=== PATIENT | male | born 1955 | race Native Hawaiian/Other Pacific Islander ===

== ENCOUNTER 2017-03-05 07:54 | Day surgery (SDC) | payer OTHER ==
[~2017-03-05] VITALS: Ht 172.7 cm; Wt 103.0 kg
[~2017-03-05 07:54] MED LIST: GUAI600 PO; LACT PO; OXYC1SOL5 PO; PROT40TA PO; WARF6 PO
[2017-03-05 08:25] VITALS: BP 153/79; PULSE 71; RESP 16; TEMP 98.2; O2SAT 96
[2017-03-05] MEDS ORDERED: AMLO10TA2 PO (08:29)
[2017-03-05] MEDS ORDERED: ROSU10 PO (08:29)
[2017-03-05] MEDS ORDERED: HYDR-3533 PO (08:29)
[2017-03-05] MEDS ORDERED: MOBI15TA PO (08:29)
[2017-03-05] MEDS ORDERED: ASPI81CH CHEW (08:29)
[2017-03-05] MEDS ORDERED: APIX5TAB PO (08:29)
[2017-03-05 08:44] LABS: AUTOMATED NEUTROPHIL # 1.5 TH/MM3 (1.8-7.7); BASOPHIL % 0.3 % (0.0-2.0); EOSINOPHIL # 0.3 TH/MM3 (0-0.4); EOSINOPHIL % 5.4 % (0.0-4.0); HEMATOCRIT 44.5 % (39.0-51.0); HEMO FLAGS DIFF FINAL; LYMPH % 49.5 % (9.0-44.0); LYMPHOCYTE # 2.3 TH/MM3 (1.0-4.8); MEAN CELL VOLUME 82.4 FL (80.0-100.0); MONO % 13.5 % (0.0-8.0); NEUT % 31.3 % (16.0-70.0); PLATELET COUNT 227 TH/MM3 (150-450); RED CELL DISTRIBUTION WIDTH 14.8 % (11.6-17.2); WHITE BLOOD COUNT 4.7 TH/MM3 (4.0-11.0)
[2017-03-05 09:00] LABS: BICARBONATE 25.9 MEQ/L (21.0-32.0); POTASSIUM 3.9 MEQ/L (3.5-5.1); PROTHROMBIN TIME - PATIENT 10.7 SEC (9.8-11.6)
[2017-03-05] MEDS ORDERED: HEPARIN SODIUM - IV 10,000 UNITS/10 ML VIAL ONE (09:55)
[2017-03-05] MEDS ORDERED: MIDAZOLAM HCL 5 MG/ML VIAL (1 ML) ONE (09:56)
[2017-03-05] MEDS ORDERED: diphenhydrAMINE HCL 50 MG/ML VIAL ONE (10:22)
[2017-03-05] MEDS ORDERED: LIDOCAINE HCL 1% 20 ML VIAL ONE ×2 (10:29→11:26)
--- NOTE | 2017-03-05 18:24 | EKG ---
Date Performed: 03/05/2017 Time Performed: 08:59:12 PTAGE: 61 years EKG: Sinus rhythm . Normal ECG NO SIGNIFICANT CHANGE FROM PRIOR ELECTROCARDIOGRAM. PREVIOUS TRACING : 04/19/2015 19.03 DOCTOR: Andrews Fraire Interpretating Date/Time 03/05/2017 18:22:25
--- NOTE | 2017-03-05 22:53 | MP ---
cc: GLENDY WHITE MD DATE OF SURGERY 03/05/17 INDICATION Patient having severe claudication. PREOPERATIVE DIAGNOSIS: Peripheral vascular disease OPERATION 1. Angiogram with runoff. 2. Trial of angioplasty of the right iliac artery. After obtaining informed consent, the patient was brought to the cath laboratory. The left groin area was sterilized after sterile drapes. 5 [place] sheath used to access left femoral artery. Pigtail used to perform abdominal aorta with distal runoff. RESULTS On the left side, left common iliac, femoral, profunda femoral, popliteal and anterior posterior and posterior tibial artery and peroneal arteries with no significant disease. On the right side, the right common iliac completely occluded very proximally. Could not really see much except by delayed imaging of reconstitution. Initially 6 [place] sheath long exchanged on the left side and tried several times with a wire to pass through and was unsuccessful angioplasty. Access from the right side was done with a 6 [place] sheath. Also, multiple trials with several wires and supporting catheters to open up the blockage, was unsuccessful. Trial was stopped at this point. Right lower extremity angiogram was performed and showed common femoral, profunda femoral, superficial femoral, popliteal and tibial with no significant disease. Surgical consult was obtained with Dr. Newell. Sheath on the left side was taken out with ___ done. Right side will be done with manual pressure. Sent back to recovery room in stable condition. No complications. POSTOPERATIVE DIAGNOSIS 1. Completed occluded right common iliac artery with good distal runoff. 2. No significant disease on the left side. MD TIFFANY Cassidy/ /12:40 PM /10:38 PM
== END 2017-03-05 19:00 | disposition home or self-care (01) ==
LOC: HCVO 07:54 → HDIC 07:55 → HCVO 19:00
PROVIDERS: ATTEND Internal Medicine Cardiovascular Disease
DX: I74.5 Embolism and thrombosis of iliac artery (principal); Z01.810 Encounter for preprocedural cardiovascular examination; Z01.818 Encounter for other preprocedural examination
CPT/HCPCS: 01500; 37228; 75625; 75716; 80048; 85002; 85025; 85610; 93005; C1751; C1760; C1769; G0269; J1200; J1644; J2250; J3010

== ENCOUNTER 2017-04-17 10:44 | Day surgery (SDC) | payer OTHER ==
[~2017-04-17 10:44] MED LIST changes: +AMLO10TA2 PO; +APIX5TAB PO; +ASPI81CH CHEW; -GUAI600 PO; +HYDR-3533 PO; -LACT PO; +MOBI15TA PO; -OXYC1SOL5 PO; -PROT40TA PO; +ROSU10 PO; -WARF6 PO
[2017-04-17 11:27] VITALS: BP 145/82; PULSE 56; RESP 16; TEMP 97.9; O2SAT 95
[2017-04-17] MEDS ORDERED: NS 1000P @30 MLS/HR (KVO) IV SCH (12:00)
[2017-04-17 12:03] LABS: AUTOMATED NEUTROPHIL # 1.4 TH/MM3 (1.8-7.7); BASOPHIL % 0.7 % (0.0-2.0); EOSINOPHIL # 0.2 TH/MM3 (0-0.4); EOSINOPHIL % 3.7 % (0.0-4.0); HEMATOCRIT 42.6 % (39.0-51.0); HEMO FLAGS DIFF FINAL; LYMPH % 52.6 % (9.0-44.0); LYMPHOCYTE # 2.5 TH/MM3 (1.0-4.8); MEAN CELL VOLUME 83.2 FL (80.0-100.0); MEAN CORPUSCULAR HEMOGLOBIN 27.4 PG (27.0-34.0); MEAN CORPUSCULAR HGB CONC 32.9 % (32.0-36.0); MONO % 12.3 % (0.0-8.0); NEUT % 30.7 % (16.0-70.0); PLATELET COUNT 272 TH/MM3 (150-450); RED BLOOD COUNT 5.12 MIL/MM3 (4.50-5.90); RED CELL DISTRIBUTION WIDTH 15.4 % (11.6-17.2); WHITE BLOOD COUNT 4.7 TH/MM3 (4.0-11.0)
[2017-04-17] MEDS ORDERED: VERAPAMIL HCL 5 MG/2 ML VIAL ONE (12:04)
[2017-04-17] MEDS ORDERED: MIDAZOLAM HCL 2 MG/2 ML VIAL ONE (12:04)
[2017-04-17] MEDS ORDERED: HEPARIN-NS/PF INJ 500 ML ONE (12:04)
[2017-04-17] MEDS ORDERED: HEPARIN SODIUM - IV 10,000 UNITS/10 ML VIAL ONE (12:05)
[2017-04-17] MEDS ORDERED: NITROGLYCERIN INJ 5 ML ONE (12:06)
[2017-04-17] MEDS ORDERED: IOHEXOL 350 MG/ML 100 ML BTL (for Cath Lab) OTHER ONE (12:08)
[2017-04-17 12:27] LABS: BICARBONATE 26.4 MEQ/L (21.0-32.0); POTASSIUM 3.7 MEQ/L (3.5-5.1)
--- NOTE | 2017-04-17 20:07 | EKG ---
Date Performed: 04/17/2017 Time Performed: 11:39:34 PTAGE: 61 years EKG: Sinus rhythm . Normal ECG PREVIOUS TRACING : 03/05/2017 08.59 Compared to prior tracing no significant change DOCTOR: Clarence Pastor Interpretating Date/Time 04/17/2017 20:06:14
--- NOTE | 2017-04-18 08:35 | CATHPROC ---
Five minutes HIS Report Study Information Study Number Admission Scheduled Start Study Start [id number] Apr 17 2017 10:44AM 04/17/2017 Apr 17 2017 12:09PM Study Type [place] Service Left/Possible PCI Cardiac Catheterization Admit Source Facility Department Other [facility] - [facility] [employer] Physician and Clinical Staff Initial Jamal Gonzales [employer] Inspector Cesar RN, Noman RecordLili Shea,LEGAL ADVISER TECH2 Scrub Tina Harman,RT(R) Procedures Performed Procedure Location (Site) Vessel Name Coronary Angiograms LCA Left Coronary Coronary Angiograms RCA Right Coronary LV Gram-hand inj. LV LV Ventricle Equipment Time Insemination Worker Description Size Mfg Part Number Used/Scraped TRANSDUCER, TRUWAVE [id number] 12:36 CRAMER SIN * Used W/STOCKCOCK *[id number] *[id number] 12:36 [employer] INDUSTRIES PACK, CCL CUSTOM * Used *[id number] 12:36 [employer] SUPPORT, ARTERIAL ADULT 92024 Used [id number] 12:36 [employer] PACER PEN, SKIN DUAL W/ RULER * Used *[id number] BAND, RADIAL COMPRESSION TR [id number] 12:45 [employer] MEDICAL 29CM Used LARGE 29 *[id number] 12:36 [employer] WIRE, EXCHANGE 260CM 3MMJ 260CM Used *[id number] 12:36 NAMIC MANIFOLD, 4 PORT * Used *[id number] 12:36 NAM[employer] TUBING, HIGH PRESSURE 20" 20" Used *[id number] 12:36 [employer] OMNIPAQUE, 350 MG, 150ML 150ML [id number] Used [id number] 12:36 [employer],WARM AIR CCL * Used *[id number] CATHETER, FR5 OPTITORQUE [id number] 12:28 [employer] FR 5 Used RADIAL TIG 4.0 *[id number] SHEATH, FR6 TRANSRADIAL RM*[id number] 12:36 [employer] FR 6 Used SLENDER 10CM *[id number] History: Allergies Allergy Reaction Amoxicillin Ampicillin UNKNOWN Penicillin History: Risk Factors Family History of Hypertension Dyslipidemia Previous RI Previous Heart Failure Premature CAD Yes Yes No No No Prior Valve Prior PCI Prior CABG Surgery No No No Cerebrovascular Peripheral Artery Chronic Lung On Dialysis Diabetes Disease Disease Disease No No Yes Yes No History: Stress Tests Stress or Imaging Studies Performed Yes History: Other Current Smoker Method Quit Packs a Day Years Used Pack Years No Cigarettes 2 Years Ago 2 40 80 Labs Hgb (g/dl) Hct (%) WBC (l/cumm) Platelets (thousands) 11.60-17.00 35.00-51.00 4.00-11.00 150.00-450.00 14.0 42.6 4.7 272 CPK-MB (ng/ML) 0.50-3.60 Not Drawn Medication Medication Total Dose (Bolus/Oral) Medication Total Dosage/Unit 1% XYLOCAINE 20 mL RADIAL COCKTAIL 5 mL (Bolus) VERSED 2 mg Medications (Bolus/Oral) Medication Time Given Dosage/Unit Administered By Reason 1% XYLOCAINE 04/17/2017 12:31:01 PM 20 mL Jamal Mcdonald 20 mL 1% XYLOCAINE given in lab by Jamal Mcdonald in Right Radial via Subcutaneous. VERSED 04/17/2017 12:31:18 PM 2 mg Noman Guerrero RN 2 mg VERSED given in lab by Noman Guerrero RN in Left Antecubital via Peripheral IV. Ordered by Jamal Mcdonald. RADIAL COCKTAIL 04/17/2017 12:35:03 PM 5 mL (Bolus) Jamal Mcdonald 5 mL (Bolus) RADIAL COCKTAIL given in lab by Jamal Mcdonald in Right Radial via Radial. Using D5W. Ord ered by Jamal Mcdonald. Medication (Drip) Medication Time Given Dosage/Unit Concentration/Unit Diluent (ml) Solution IV Solutions 04/17/2017 12:09:30 PM 0 mL (IV) 500 NaCl .9 IV Solutions given in lab by Noman Guerrero RN in Left Antecubital via Peripheral IV. Pump/Drip Flow = 20 ml/hr using NaCl .9. Initial Case Assessment Cardiovascular HR Rhythm NIBP Chest Pain 75 sr 132/75 0 Circulatory - Right Pulses Radial 2 Scale (0,1,2,3,4,d) Circulatory - Left Pulses Radial Scale (0,1,2,3,4,d) Neurological State Oriented to time-place- Alert Moves all extremities person Respiration - General Respiration Rate SpO2 (%) (B/min) 20 97 Chronological Log Time Study Chronological Log Vitals capture started with the following parameters, Patient=Adult, Interval=5 min, Initial Tqrfpvlo=342 mmHg, 12:08:52 Deflation Rate=5 mmHg 12:08:56 Patient arrived via Bed. 12:08:57 Patient Name, D.O.B, / Armband Verified By R.N. 12:08:58 Consent signed by the physician and the patient and verified by the [employer] staff. 12:08:58 Pre-op and post- op instructions given; patient acknowledges understanding of instruction s. 12:08:59 Verbal Stimulation=2 Physical Stimulation=2 Airway=2 Respiration=2 TOTAL=8. (0=absent, 1= limited, 2=present) 12:09:01 Presedation assessment performed by [employer] RN. 12:09:05 Allens test performed on the left radial and ulnar artery- positive 12:09:08 Patient has been NPO for More than 6Hrs. 12:09:09 Skin Breakdown-none 12:09:12 Ciaran Prominences Protected 12:09:14 A # 20 IV was noted in the Antecubital (left). Grade = patent 12:09:30 HR=66 bpm, ZNGC=893/75 mmhg, SpO2=96.0 %, Resp=19 B/min IV Solutions given in lab by Noman Guerrero RN in Left Antecubital via Peripheral IV. Pump/Drip F low = 20 ml/hr using NaCl 12:09:30 .9. 12:09:51 History and physical on the chart or being dictated. Assessment: Initial Case, HR=75 BPM, Rhythm=sr, XLQV=614/75 mmhg, Chest Pain=0 Right Pulses: Radial=2 12:09:52 Left Pulses: Wolf Ped=2 Neurological: State=Alert, Ox3, WARREN Respiration: Resp=20 B/min, SpO2=97 % 12:14:31 Vitals capture stopped. Vitals capture started with the following parameters, Patient=Adult, Interval=5 min, Initial Pr aajeqs=212 mmHg, 12:17:39 Deflation Rate=5 mmHg 12:18:14 HR=71 bpm, UAFI=764/76 mmhg, SpO2=97.0 %, Resp=13 B/min, Pain=0, Yamil=10, Ramos=2 12:23:15 HR=70 bpm, VKQU=241/63 mmhg, SpO2=96.0 %, Resp=22 B/min, Pain=0, Yamil=10, Ramos=2 12:24:48 Right wrist and left groin prepped with 2% chlorhexidine, and draped afater a 3 min. waitin g time. 12:28:53 HR=67 bpm, DPWO=912/74 mmhg, SpO2=99.0 %, Resp=15 B/min, Pain=0, Yamil=10, Ramos=2 12:28:58 MD arrived. Time Out. Correct patient, correct procedure,correct physician, ,power injector loaded or not l oaded with contrast with 12:30:58 surgical team present. Time Out Concurred by MD, individual staff and COATER [employer] PAPER in procedure 12:31:00 Case Start 12:31:01 20 mL 1% XYLOCAINE given in lab by Jamal Mcdonald in Right Radial via Subcutaneous. 12:31:18 2 mg VERSED given in lab by Noman Guerrero RN in Left Antecubital via Peripheral IV. Ordered by Jamal Mcdonald. 12:32:19 Access site was Radial Artery. A SHEATH, FR6 TRANSRADIAL SLENDER 10CM FR 6 was advanced into the Fem Art (right) using the Per cutaneous 12:32:33 technique. 12:33:15 HR=76 bpm, FKWI=458/79 mmhg, SpO2=97.0 %, Resp=15 B/min 12:34:20 Pressure channel 1 zeroed. 12:34:52 Reference ECG taken 5 mL (Bolus) RADIAL COCKTAIL given in lab by Jamal Mcdonald in Right Radial via Radial. Using D5 W. Ordered by Tamara, 12:35:03 Jamal. A CATHETER, FR5 OPTITORQUE RADIAL TIG 4.0 FR 5 was advanced over a wire. OMNIPAQUE, 350 MG, 150 ML 150ML 12:35:12 was used for injections. Recorded Pressure: Ao, HR=74, Condition=Condition 1 12:36:27 (Aorta) Ao 113/64/84 12:37:27 The LCA was injected and visualized at various angles. OMNIPAQUE, 350 MG, 150ML 150ML used . 12:38:18 HR=71 bpm, OTBC=089/64 mmhg, SpO2=94.0 %, Resp=18 B/min, Pain=0, Yamil=10, Ramos=2 12:40:52 Catheter was removed A JR 4.0 INFINITI CATHETER FR 5 was advanced over a wire. OMNIPAQUE, 350 MG, 150ML 150ML was us ed for 12:41:36 injections. 12:42:44 The RCA was injected and visualized at various angles. OMNIPAQUE, 350 MG, 150ML 150ML used . 12:43:13 HR=71 bpm, CVRU=939/66 mmhg, SpO2=95.0 %, Resp=16 B/min, Pain=0, Yamil=10, Ramos=2 Recorded Pressure: LV, HR=72, Condition=Condition 1 12:43:14 (Left Ventricle) LV 117/12/15 12:43:29 The LV was manually injected with 10 cc's and visualized. OMNIPAQUE, 350 MG, 150ML 150ML u sed. Recorded Pressure: LV, Ao, HR=72, Condition=Condition 1 12:43:34 (Left Ventricle) LV 79/30/34, (Aorta) Ao 138/40/83 12:47:22 Catheter was removed 12:47:26 Case End 12:47:34 The Recorder is being relieved by Lili Johnson RCIS TECH2. by iris gerardo rn 12:48:14 HR=70 bpm, EKPV=592/71 mmhg, SpO2=95.0 %, Resp=16 B/min, Pain=0, Yamil=10, Ramos=2 12:49:25 Sheath removed; pressure applied to access site. Radial Compression Device Used. 11 mLs of air placed in BAND, RADIAL COMPRESSION TR LARGE 29 2 9CM. Affected 12:49:27 hand 96 % O2 saturation. 12:49:56 No case complications noted. 12:49:59 Bedside Report will be given. 12:50:04 Patient moved to [facility] End Study - Contrast Media Used In Study Contrast Total Opened (mL) Total Used (mL) Total Wasted (mL) Omnipaque 150 65 85 End Study - Radiation Exposure Fluoro Time (minutes) 3.5 End Study - Patient Disposition Complications Transferred To Telemetry Bed
--- NOTE | 2017-04-18 14:13 | MA ---
cc: NEREYDA WHITE M.D. DATE 04/17/2017 INDICATIONS FOR PROCEDURE The patient is a 61-year-old male with a history of chest pain, possible coronary artery ischemia. PROCEDURE Left heart catheterization, angiogram, left ventriculogram. PROCEDURE NOTE After obtaining informed consent, the patient in a fasting state was brought to the geophysical laboratory chief. The right radial area was sterilized and draped with sterile drapes. 1% Xylocaine was used to locally anesthetize the area. A 6-[place] sheath was used to access the right radial artery. A Wade catheter was used to intubate the left main and JR4 to intubate the right coronary artery and perform left ventriculogram and pressure measurements. CORONARY ANGIOGRAM The left main coronary artery is a medium-sized vessel which trifurcates into LAD, ramus intermedius and left circumflex coronary artery. The left main has no significant disease. The left anterior descending coronary artery and its branches have no significant disease. The ramus intermedius is very small with no signfiicant disease. The left circumflex coronary artery appeared large. This vessel was dominant. There was no significant disease. The right coronary artery is a smaller vessel, nondominant with no significant disease. LEFT VENTRICULOGRAM The ejection fraction is estimated to be 60%. No pressure gradient across the aortic valve. The left ventricular end-diastolic pressure is 14. Aortic pressure is 110/78. Supportive care, medical management and reassurance to continue. The patient was sent back to back to his room in stable condition, no complications. POSTOPERATIVE DIAGNOSES 1. No significant coronary artery disease. 2. of the left ventricle. 3. Left dominant system. MD TIFFANY Cassidy/CHAPIS /12:46 PM /1:47 PM
== END 2017-04-17 18:21 | disposition home or self-care (01) ==
LOC: HDOC 10:44 → HDIC 10:45 → HDOC 18:21
PROVIDERS: ATTEND Internal Medicine Cardiovascular Disease
DX: R07.9 Chest pain, unspecified (principal); I20.9 Angina pectoris, unspecified; I10 Essential (primary) hypertension; E78.5 Hyperlipidemia, unspecified; I27.82 Chronic pulmonary embolism; I73.9 Peripheral vascular disease, unspecified
CPT/HCPCS: 80048; 85025; 93005; 93458; C1769; C1893; J1644; J2250; Q9967